=== PATIENT | female | born 1960 | race Caucasian/White ===

== ENCOUNTER → 2016-06-06 | Outpatient (CLI) | payer OTHER, MEDICARE ==
[~2016-06-06] MED LIST: ALAVERT10 M1 PO; ALAVERT10 M3 PO; ASPIRINEC PO; CRESTOR PO; DICLOFENAC PO; DIOVAN PO; DYAZIDE 37.5/251 CAP PO; ENABLEX15 MG PO; ESTRACE1 MG PO; FISH OIL 1,0001 CAP PO; FISH OIL 1,0001 EAC1 PO; FLONASE 0.05% N16 G1; FLONASE16 GM; GLUCOPHAGE XR500 MG PO; LEVEMIR100 UNITS/ SQ; LOSARTAN POTASS50 MG PO; LOSARTAN-HCTZ1 EACH; MAG-OXIDE400 MG PO; MAXZIDE-25 MG T1 TAB PO; MEDROL4 MG/DOSE- PO; MULTIVITAMINS1 EAC3 PO; NEURONTIN300 MG PO; NOVOLOG FL100 UNIT/1; OSTEO-PORETICA1 EACH; OXYBUTYNIN PO; PHENERGAN12.5 MG PO; PRAVACHOL PO; PRILOSEC PO; RAPINIROLE PO; REGLAN PO; SINGULAIR PO; TRAMADOL HCL50 M2 PO; TRILIPIX135 MG; VAGIFEM25 MCG PO; WELLBUTRIN PO; ZYLOPRIM100 MG PO; [UNRECOGNIZED DRUG - OTHER] IV
== END | disposition home or self-care (01) ==
LOC: CSSDAY 10:02
DX: D83.9 Common variable immunodeficiency, unspecified (principal); Z79.899 Other long term (current) drug therapy
CPT/HCPCS: 96365; 96366; J1568

== ENCOUNTER → 2016-07-04 | Outpatient (CLI) | payer OTHER, MEDICARE | END | disposition home or self-care (01) | LOC: CSSDAY 10:00 | DX: D83.9 Common variable immunodeficiency, unspecified (principal); Z79.899 Other long term (current) drug therapy | CPT/HCPCS: 96365; 96366; J1568 ==

== ENCOUNTER → 2016-08-01 | Outpatient (CLI) | payer OTHER, MEDICARE | END | disposition home or self-care (01) | LOC: CSSDAY 10:20 | DX: D83.9 Common variable immunodeficiency, unspecified (principal); Z79.899 Other long term (current) drug therapy | CPT/HCPCS: 96365; 96366; J1568 ==

== ENCOUNTER → 2016-08-29 | Outpatient (CLI) | payer OTHER, MEDICARE | END | disposition home or self-care (01) | LOC: CSSDAY 09:49 | DX: D83.9 Common variable immunodeficiency, unspecified (principal) | CPT/HCPCS: 96365; 96366; J1568 ==

== ENCOUNTER → 2016-10-03 | Outpatient (CLI) | payer OTHER, MEDICARE | END | disposition home or self-care (01) | LOC: CSSDAY 10:00 | DX: D83.9 Common variable immunodeficiency, unspecified (principal); Z79.899 Other long term (current) drug therapy | CPT/HCPCS: 96365; 96366; J1568 ==

== ENCOUNTER → 2016-10-31 | Outpatient (CLI) | payer OTHER, MEDICARE | END | disposition home or self-care (01) | LOC: CSSDAY 09:00 | DX: D83.9 Common variable immunodeficiency, unspecified (principal) | CPT/HCPCS: 96365; 96366; J1568 ==

== ENCOUNTER → 2016-11-28 | Outpatient (CLI) | payer OTHER, MEDICARE | END | disposition home or self-care (01) | LOC: CSSDAY 10:12 | DX: D83.9 Common variable immunodeficiency, unspecified (principal) | CPT/HCPCS: 96365; 96366; J1568 ==